=== PATIENT | female | born 1985 | race Caucasian/White ===

== ENCOUNTER 2016-07-24 17:58 | Inpatient (IN) | payer OTHER ==
[2016-07-24] MEDS ORDERED: MINERAL OIL 60 ML OIL TP PRN (19:23)
[2016-07-24] MEDS ORDERED: EPSOM SALT 454 GM TP PRN (19:23)
[2016-07-24] MEDS ORDERED: OXYTOCIN/RINGERS LACTATE 1,000 ML IV PRN (19:23)
[2016-07-24] MEDS ORDERED: LIDOCAINE 1% 30 ML SDV SC PRN (19:23)
[2016-07-24] MEDS ORDERED: TERBUTALINE SULFATE 1 MG/ML VIAL IV PRN (19:23)
[2016-07-24] MEDS ORDERED: ZOLPIDEM TARTRATE 5 MG TAB PO ONE (19:25)
[2016-07-24] MEDS ORDERED: LR 500 ML IV PRN (19:26)
[2016-07-24] MEDS ORDERED: OXYTOCIN/RINGERS LACTATE 500 ML IV SCH (19:30)
--- NOTE | 2016-07-24 19:35 | GHP ---
[f rep st] PREOP HISTORY AND PHYSICAL DATE OF ADMISSION: 07/24/2016 ADMISSION DIAGNOSIS: 1. Intrauterine at 38 weeks. 2. Oligohydramnios. 3. Nonreactive nonstress test. INDICATIONS: The patient is a 31-year-old, 2, para 1-0-0-1, who received good care but transferred to [facility] from [facility] at 32 weeks gestation. The patient has had an uncomplicated . The patient had presented to the office yesterday for decreased movement. She hydrates well. A nonstress test was not classically reactive, so a biophysical profile was obtained which showed 8/8. Her amniotic fluid index was 4.6, with a maximum vertical poc ket of 2 cm. The patient was sent home with kick count precautions and instructed to hydrate more th an her usual 5-6 L a day and presented for a repeat nonstress test and amniotic fluid index today. H er repeat HEVER was 4.2. NST had variability and no decelerations, however, there were no spontaneous accelerations. The patient was sent over to Labor and Delivery for observation an induction of labor in the morning. PATIENT'S MEDICAL HISTORY: Significant for cervical dysplasia, thyroid disease, constipation, a hist ory of pyelonephritis, migraine headaches, a history of anxiety, restless legs syndrome. SURGICAL HISTORY: Negative. ALLERGIES: Niacin causes skin burning, issue with pertussis. No other drug allergies. MEDICATIONS: Levothyroxine 125 mcg a day, multivitamin, magnesium, vitamin C. FAMILY MEDICAL HISTORY: Noncontributory. [employer] HISTORY: Menarche, age 12. Periods are irregular. She is a 2, para 1-0-0-1. In 2011, she had a spontaneous vaginal delivery, at 34-4/7 gestation of gestation, of a 6 pound, 4 ounce female. The patient had spontaneous rupture of membranes. Her labor was augmented, and the patient had a nuchal cord x4, but delivery was uncomplicated. Current has been uncomplicated. Alva mccann did travel to go on a cruise in the [place] during and had questionable Zika exposure. She had an ultrasound which showed good head circumference, and it was not sick during her visit dur ing being in the [place]. The patient does have a history of a LEEP excision. Repeat Paps have bee n negative. She denies any history of any sexually transmitted diseases, other than HPV. PHYSICAL EXAM: VITAL SIGNS: Stable. GENERAL APPEARANCE: Alert and oriented x3. HEART: Her heart rate is regularly irregular. LUNGS: Clear to auscultation bilaterally. ABDOMEN: Gravid, nondiste nded, nontender. EXTREMITIES: Reveal no calf tenderness or edema. CERVICAL: She is 3 cm dilated, 80% effaced and -2 station. The is in the vertex presentation with a [id number] variabi lity on the heart tracing but no accelerations. She is not having any contractions. Patient's labs: Blood type A positive, antibody screen negative, rubella immune. GBS negat dmitriy. HBsAg negative. HIV negative. Her 50 g glucose was 100. The patient did have some borderline platelets in her . They have stayed stable between 136 and 140, most recently the lowest w as in the low 100s. ASSESSMENT AND PLAN: A 31-year-old, 2, para 1-0-0-1, at 38 weeks gestation, with oligohydram nios. She is being brought in for induction of labor. She will be started on Pitocin in the morning . The patient would like to sleep overnight. She will be monitored with heart tracing jamshid torres. /[id number]/MODL
[2016-07-24] MEDS ORDERED: diphenhydrAMINE 25 MG CAP PO PRN (23:15)
[2016-07-25] MEDS ORDERED: LIDOCAINE 1% 30 ML SDV ONE (05:45)
[2016-07-25] MEDS ORDERED: MISOPROSTOL 200 MCG TAB ONE (05:45)
[2016-07-25] MEDS ORDERED: AMMONIA AROMATIC 1 EACH AMP IH ONE (05:45)
[2016-07-25] MEDS ORDERED: OXYTOCIN 10 UNIT/ML VIAL ONE (05:45)
[2016-07-25] MEDS ORDERED: TERBUTALINE SULFATE 1 MG/ML VIAL ONE (05:45)
[2016-07-25] MEDS: LR 1,000 ML IV PRN ×3 (06:45→13:44)
[2016-07-25 06:59] LABS: % IMMATURE GRANULYOCYTES 0.1 % (0.0-1.1); ABSOLUTE IMMATURE GRANULOCYTES 0.01 10^3/uL (0.00-0.10); ADD DIFF? NO; ADD MORPH? NO; ADD SCAN? NO; ATYPICAL LYMPHOCYTE FLAG 0 (0-99); FRAGMENT RBC FLAG 0 (0-99); HEMATOCRIT 36.9 % (38.0-47.0); HEMOGLOBIN 12.7 g/dL (12.6-16.3); LEFT SHIFT FLG 0 (0-99); LIPEMIA HEMOLYSIS FLAG 90 (0-99); MEAN CELL HEMOGLOBIN 30.9 pg (27.9-34.1); MEAN CELL HEMOGLOBIN CONCENTR. 34.4 g/dL (32.4-36.7); MEAN CELL VOLUME 89.8 fL (81.5-99.8); MEAN PLATELET VOLUME 13.3 fL (8.7-11.7); PLATELET CLUMPS FLAG 0 (0-99); PLATELET COUNT 125 10^3/uL (150-400); RED BLOOD CELL COUNT 4.11 10^6/uL (4.18-5.33); RED CELL DISTRIBUTION WIDTH 14.5 % (11.5-15.2)
[2016-07-25] MEDS ORDERED: fentaNYL 2MCG/ML/BUP 0.1% RTU 100 ML BAG EP SCH (07:54)
[2016-07-25] MEDS ORDERED: BUPIVACAINE 0.25% 30 ML SDV ONE (07:59)
[2016-07-25] MEDS ORDERED: fentaNYL 2MCG/ML/BUP 0.1% RTU 100 ML BAG EP ONE (07:59)
[2016-07-25] MEDS ORDERED: BUPIVACAINE 0.25% 30 ML SDV NB ONE (08:00)
[2016-07-25] MEDS ORDERED: PHENYLEPHRINE HCL 100 MCG/ML SYR ONE (08:00)
--- NOTE | 2016-07-25 08:14 | OBPROG ---
OBG Progress Note Assessment/Plan: Assessment: 31y/o @ 38 1/7 wks for IOL secondary to oligo and nonreassuring testing Plan: Continue current management Pitocin at 4 mu/min, increase per protocol FHTs - Cat I tracing Epidural per pt request GBS negative, no prophylactic abx needed 07/25/16 08:11 Subjective: Pt seen and examined. She is tired, didn't sleep well. Desires an epidural at some point. Objective: 07/25/16 06:15 Patient ABO/Rh A POSITIVE 07/25/16 06:15 - SVE Dilation (cm): 3 Effacement (%): 80 Station: -2 Current Contraction Pattern: Irregular FHR (bpm): 140 FHR Pattern Variability: Moderate FHR Category: 1 Membranes: Intact ICD10 Worksheet Patient Problems: Problems Problem Status Diagnosed Oligohydramnios Acute (spontaneous vaginal delivery) Acute - ICD10 Problem Qualifiers (1) Oligohydramnios Qualifiers: Fetus number: single or unspecified fetus Trimester: third trimester Qualified Description: Oligohydramnios, third trimester, not applicable or unspecified fetus Qualifier Code(s): (O41.03X0) Oligohydramnios, third trimester, not applicable or unspecified
[2016-07-25] MEDS ORDERED: LEVOTHYROXINE 125 MCG TAB PO SCH (08:30)
[2016-07-25] MEDS ORDERED: ONDANSETRON 4 MG/2 ML VIAL IVP PRN (09:13)
[2016-07-25] MEDS ORDERED: METOCLOPRAMIDE 10 MG/2 ML VIAL IVP PRN (10:12)
[2016-07-25] MEDS ORDERED: LR 500 ML IV SCH (10:30)
[2016-07-25] MEDS: PHENYLEPHRINE HCL 100 MCG/ML SYR IVP PRN ×4 (12:07→13:17)
--- NOTE | 2016-07-25 12:38 | OBPROG ---
OBG Progress Note Assessment/Plan: Assessment: 31y/o @ 38 1/7 wks for IOL secondary to oligo and nonreassuring testing Plan: Continue current management Pitocin at 14 mu/min, increase per protocol IUPC placed and labor seems adequate at this time FHTs - Cat I tracing s/p epidural Anticipate 07/25/16 12:34 Subjective: Pt is comfortable, s/p epidural Objective: 07/25/16 06:15 Patient ABO/Rh A POSITIVE 07/25/16 06:15 - SVE Dilation (cm): 4 Effacement (%): 80 Station: 0 Current Contraction Pattern: Regular FHR (bpm): 150 FHR Pattern Variability: Moderate FHR Category: 1 Membranes: AROM Amniotic Fluid Color: Bloody ICD10 Worksheet Patient Problems: Problems Problem Status Diagnosed Oligohydramnios Acute (spontaneous vaginal delivery) Acute - ICD10 Problem Qualifiers (1) Oligohydramnios Qualifiers: Fetus number: single or unspecified fetus Trimester: third trimester Qualified Description: Oligohydramnios, third trimester, not applicable or unspecified fetus Qualifier Code(s): (O41.03X0) Oligohydramnios, third trimester, not applicable or unspecified
[2016-07-25] MEDS ORDERED: SIMETHICONE 80 MG TAB CHEW PO PRN (15:19)
[2016-07-25] MEDS ORDERED: IBUPROFEN 600 MG TAB PO PRN (15:19)
[2016-07-25] MEDS ORDERED: HYDROCORTISONE 0.5% CREAM TP PRN (15:19)
--- NOTE | 2016-07-25 15:23 | OBPROC ---
- Labor and Delivery Onset of Contractions Date: 07/25/16 Onset of Contractions Time: 07:00 Onset of Contractions Type: Induced Rupture of Membranes Date: 07/25/16 Rupture of Membranes Time: 12:30 Rupture of Membranes Type: Artificial Amniotic Fluid Color: Bloody Dilation Complete Time: 14:30 Delivery Type: Spontaneous Placenta Delivery Date: 07/25/16 Placenta Delivery Time: 15:05 Episiotomy/Laceration: Other (Specify) (No lacs/tears) EBL: 300 Complications: None - Medications Labor Augmentation/Induction Meds Used: Pitocin Labor Augmentation/Induction Indication: Other (Specify) (Oligo and nonreassuring testing) Anesthesia: Epidural - Info Infant A Delivery Date: 07/25/16 Delivery Time: 15:00 Sex of Infant: Female Score (1 Min): 9 Score (5 Min): 9 (Terminal mec noted)
[2016-07-25] MEDS: IBUPROFEN 600 MG TAB PO PRN ×2 (15:26→21:51)
[2016-07-25] MEDS: HYDROCODONE/APAP 5/325 TAB PO PRN ×2 (17:53→21:50)
[2016-07-25 18:23] VITALS: RESP 16
[2016-07-25] MEDS: DOCUSATE SODIUM 100 MG CAP PO PRN (21:49)
[2016-07-26] MEDS: OXYCODONE/APAP 5/325 TAB PO PRN ×4 (00:59→13:30)
[2016-07-26] MEDS: IBUPROFEN 600 MG TAB PO PRN ×3 (03:25→15:20)
[2016-07-26] MEDS ORDERED: LEVOTHYROXINE 100 MCG TAB PO SCH (06:00)
[2016-07-26 08:05] VITALS: BP 102/61; PULSE 74; TEMP 99; O2SAT 97
[2016-07-26] MEDS: DOCUSATE SODIUM 100 MG CAP PO PRN (13:31)
--- NOTE | 2016-07-26 20:00 | SOAPPROG ---
SOAP Progress Note Assessment/Plan: Assessment: LATE NOTE - WRITTEN AFTER DELIVERY PPD 1 s/p OLIGO - induced strong cramps with BF Plan: routine care, pt desires d/c 07/26/16 19:56 Subjective: LATE NOTE AFTER BEING SEEN THIS AM APPROX NOON Pt doing well except strong cramps with breast feeding. using percocet and ibu. bld is light. urinating fine. baby is latching well. pt desires d/c home Objective: Vital Signs Temp Pulse Resp BP Pulse Ox 37.2 C 74 16 102/61 97 07/26/16 08:04 07/26/16 08:04 07/26/16 08:04 07/26/16 08:04 07/26/16 08:04 Laboratory Results 07/25/16 06:15 07/25/16 07/26/16 07/27/16 05:59 05:59 05:59 Intake Total 2500 Output Total 650 Balance 1850 Physical Exam - Physical Exam General Appearance: WD/WN Abdomen: non-tender, soft, other (FF at umb -1) Pelvic Exam: vaginal bleeding (normal lochia) Extremities: non-tender, pedal edema (mild) Neuro/Psych: normal mood/affect ICD10 Worksheet Patient Problems: Problems Problem Status Diagnosed Oligohydramnios Acute (spontaneous vaginal delivery) Acute
== END 2016-07-26 15:35 | disposition home or self-care (01) | DRG 775 ==
LOC: FLD 17:58 → FOB 07-25 16:57
PROVIDERS: ADMIT Obstetrics & Gynecology; ATTEND Obstetrics & Gynecology
PROC: 10907ZC Drainage of Amniotic Fluid, Therapeutic from Products of Conception, Via Natural or Artificial Opening (ICD-10-PCS; principal; 2016-07-25)
PROC: 4A1J7BZ Monitoring of Products of Conception, Nervous Pressure, Via Natural or Artificial Opening (ICD-10-PCS; principal; 2016-07-25)
PROC: 10E0XZZ Delivery of Products of Conception, External Approach (ICD-10-PCS; principal; 2016-07-25)
PROC: 3E033VJ Introduction of Other Hormone into Peripheral Vein, Percutaneous Approach (ICD-10-PCS; principal; 2016-07-25)
DX: O41.03X0 Oligohydramnios, third trimester, not applicable or unspecified (principal); Z3A.38 38 weeks gestation of pregnancy
CPT/HCPCS: J2370; J2405; J2590; J3105